=== PATIENT | male | born 1955 | race Caucasian/White ===

== ENCOUNTER → 2017-01-18 | Outpatient (CLI) | payer BC, OTHER ==
[~2017-01-18] MED LIST: ASPIR-LOW81 MG PO; CALCIUM 600 +1 EAC1 PO; CENTRUM SILVER1 EAC2 PO; COLACE100 MG PO; COUMADIN 2 MG TA2 M1 PO; DUONEB 2.5-0.5 M3 ML INH; GLUCOPHAGE1000 MG PO; HYDROCODONE-AP1 EAC6 PO; LEVAQUIN 500 M500 M4 PO; LIPITOR40 MG PO; LISINOPRIL5 MG PO; LOPRESSOR25 PO; METFORMIN HCL500 MG PO; MIRALAX17 GM PO; PACERONE 200 M200 M1 PO; PERCOCET PO; PULMICORT0.5 MG/22 INH; TYLENOL325 MG PO; XANAX 0.25 MG0.25 MG PO
--- NOTE | ~2017-01-18 | 2DMMODE ---
[facility] [place] [address] 2 D/M-MODE ECHOCARDIOGRAM Name: AKASH CORDON Room #: [facility]#: [id number] Admission: 01/18/17 Attend Phys: Shahbaz Maloney MD Discharge: Date of : 57 Date of Service: 01/18/17 1003 Report #: [id number] THIS REPORT FOR: //name// APPROVED REPORT Study performed: 01/18/2017 09:08:41 EXAM: Comprehensive 2D, Doppler, and color-flow Echocardiogram Patient Location: Out-Patient Blood Pressure: 122/75 mmHg HR: 56 bpm Rhythm: NSR Other Information Study Quality: Adequate Indications AVR 2016. Pericardail effusion/tamponade with centesis 2016. HTN 2D Dimensions RVDd: 38.02 mm LVEF(%): 57.36 (>50%) IVSd: 8.80 (7-11mm) LVOT Diam: 19.71 (18-24mm) LVDd: 41.12 mm PWd: 9.96 (7-11mm) LVDs: 28.88 (25-40mm) Aortic Root: 26.76 mm Hill's LVEF: 57.36 % Volumes Left Atrial Volume (Systole) Single Plane 4CH: 38.10 mL Single Plane 2CH: 46.18 mL LA ESV Index: 27.00 mL/m2 Aortic Valve AoV Peak Spencer.: 2.85 m/s AO Peak Gr.: 32.46 mmHg LVOT Max P.01 mmHg AO Mean Gr.: 18.55 mmHg AO V2 Mean: 2.04 m/s LVOT Max V: 1.32 m/s AO V2 VTI: 66.96 cm INDY Vmax: 1.42 cm2 Mitral Valve [facility] [place] [place] [address] 2 D/M-MODE ECHOCARDIOGRAM Name: AKASH CORDON Room #: [facility]#: [id number] Admission: 01/18/17 Attend Phys: Shahbaz Maloney MD Discharge: Date of : 57 Date of Service: 01/18/17 1003 Report #: [id number] E/A Ratio: 1.3 MV Decel. Time: 280.61 ms MV E Max Spencer.: 1.27 m/s MV A Spencer.: 0.99 m/s MV PHT: 81.38 ms IVRT: 59.98 ms Pulmonary Valve PV Peak Spencer.: 0.87 m/s PV Peak Gr.: 3.06 mmHg Pulmonary Vein P Vein S: 66.2 m/s P Vein A: 44.19 m/s P Vein D: 59.8 m/s P Vein A Dur.: 143.0 msec Tricuspid Valve TR Peak Spencer.: 2.40 m/s RAP Estimate: 5.00 mmHg TR Peak Gr.: 22.96 mmHg RVSP: 28.00 mmHg Left Ventricle The left ventricle is normal size. There is normal LV segmental wall motion. There is normal left ventricular wall thickness. Left ventricular systolic function is normal. LVEF is 55-60%. Grade II - pseudonormal filling dynamics. Right Ventricle The right ventricle is normal size. The right ventricular systolic function is normal. Atria The left atrium size is normal. The right atrium size is normal. Aortic Valve Bioprosthetic aortic valve is present. Size and manufacture unknown. Peak velocity of 2.9m/s with a peak gradient of 32mmHg and a mean of 19mmHg. Mild to moderate aortic regurgitation. Mitral Valve The mitral valve is normal in structure. Mild mitral regurgitation. No evidence of mitral valve stenosis. Tricuspid Valve The tricuspid valve is normal in structure. There is mild tricuspid regurgitation. The right atrial pressure is estimated at 5 mmHg. Estimated PAP is 28mmHg. [address] [address] 2 D/M-MODE ECHOCARDIOGRAM Name: AKASH CORDON Room #: [facility]#: [id number] Admission: 01/18/17 Attend Phys: Shahbaz Maloney MD Discharge: Date of : 57 Date of Service: 01/18/17 1003 Report #: [id number] Pulmonic Valve The pulmonary valve is normal in structure. Mild pulmonic regurgitation. Great Vessels The aortic root is normal in size. Ascending aorta is not well visualized. IVC is normal in size and collapses >50% with inspiration. <Conclusion> The left ventricle is normal size. Left ventricular systolic function is normal. Grade II - pseudonormal filling dynamics. The right ventricle is normal size. The left atrium size is normal. Bioprosthetic aortic valve is present. Size and manufacture unknown. Peak velocity of 2.9m/s with a peak gradient of 32mmHg and a mean of 19mmHg. Mild aortic regurgitation. Mild mitral regurgitation. There is mild tricuspid regurgitation. The right atrial pressure is estimated at 5 mmHg. Estimated PAP is 28mmHg. <ELECTRONICALLY SIGNED> By: Shahbaz Maloney MD 01/18/17 1003 1003 1003 Shahbaz Maloney MD /INF
== END ==
LOC: CV 08:12
DX: I31.3 Pericardial effusion (noninflammatory) (principal); Z95.2 Presence of prosthetic heart valve; I10 Essential (primary) hypertension

== ENCOUNTER → 2018-01-14 | Outpatient (CLI) | payer BC, OTHER ==
--- NOTE | ~2018-01-14 | 2DMMODE ---
[facility] [place] [address] [address] 2 D/M-MODE ECHOCARDIOGRAM Name: BRAVOAKASH Cannon Room #: REG [facility]#: [id number] Admission: 01/14/18 Attend Phys: Shahbaz Maloney MD Discharge: Date of : 57 Date of Service: 01/14/18 1059 Report #: [id number] THIS REPORT FOR: //name// APPROVED REPORT Study performed: 01/14/2018 10:10:04 EXAM: Comprehensive 2D, Doppler, and color-flow Echocardiogram Patient Location: Out-Patient Status: routine BSA: 1.70 HR: 53 bpm BP: 112/76 mmHg Rhythm: NSR Other Information Study Quality: Good Indications Aortic valve replacement 2016. History of tamponade with pericardiocentesis 2016. 2D Dimensions RVDd: 36.81 mm IVSd: 8.83 (7-11mm) LVOT Diam: 20.38 (18-24mm) LVDd: 42.35 mm PWd: 9.95 (7-11mm) Aortic Root: 26.82 mm Volumes Left Atrial Volume (Systole) Single Plane 4CH: 46.85 mL Single Plane 2CH: 66.78 mL LA ESV Index: 35.00 mL/m2 Aortic Valve AoV Peak Spencer.: 2.90 m/s AO Peak Gr.: 33.63 mmHg LVOT Max P.63 mmHg AO Mean Gr.: 16.69 mmHg AO V2 Mean: 1.88 m/s LVOT Max V: 1.08 m/s AO V2 VTI: 68.49 cm INDY Vmax: 1.21 cm2 Mitral Valve E/A Ratio: 1.[address] [facility] [address] [place] [address] 2 D/M-MODE ECHOCARDIOGRAM Name: BRAVOAKASH Davis Room #: [facility]#: [id number] Admission: 01/14/18 Attend Phys: Shahbaz Maloney MD Discharge: Date of : 57 Date of Service: 01/14/18 1059 Report #: [id number] MV Decel. Time: 262.10 ms MV E Max Spencer.: 1.31 m/s MV A Spencer.: 0.96 m/s MV PHT: 76.01 ms IVRT: 59.98 ms Pulmonary Valve PV Peak Spencer.: 0.89 m/s PV Peak Gr.: 3.15 mmHg Pulmonary Vein P Vein S: 0.65 m/s P Vein A: 0.44 m/s P Vein D: 0.57 m/s P Vein A Dur.: 133.8 msec P Vein S/D Ratio: 1.14 Tricuspid Valve TR Peak Spencer.: 2.30 m/s RAP Estimate: 5.00 mmHg TR Peak Gr.: 21.09 mmHg PA Pressure: 26.00 mmHg Left Ventricle The left ventricle is normal size. There is normal LV segmental wall motion. There is normal left ventricular wall thickness. The left ventricular systolic function is normal. LVEF is 55-60%. Right Ventricle The right ventricle is normal size. The right ventricular systolic function is normal. Atria Left atrium is mildly dilated. The right atrium size is normal. Aortic Valve Bioprosthetic aortic valve is present. 21mm [employer]entier Bradley. Peak velocity of 2.9m/s with a peak pressure gradient of 34mmHg and a mean of 17mmHg Mild aortic regurgitation. Mitral Valve The mitral valve is normal in structure. Mild mitral regurgitation. Tricuspid Valve The tricuspid valve is normal in structure. Mild tricuspid regurgitation. Estimated PAP is 25-30mmHg. Pulmonic Valve [address] [address] 2 D/M-MODE ECHOCARDIOGRAM Name: AKASH CORDON Davis Room #: REG [facility]#: [id number] Admission: 01/14/18 Attend Phys: Shahbaz Maloney MD Discharge: Date of : 57 Date of Service: 01/14/18 1059 Report #: [id number] The pulmonary valve is normal in structure. Mild pulmonic regurgitation. Great Vessels The aortic root is normal in size. Ascending aorta is not well visualized. IVC is normal in size and collapses >50% with inspiration. Pericardium There is no pericardial effusion. <Conclusion> The left ventricle is normal size. There is normal left ventricular wall thickness. The left ventricular systolic function is normal. The right ventricle is normal size. Left atrium is mildly dilated. Bioprosthetic aortic valve is present. 21mm [employer]ent[employer] Bradley. Peak velocity of 2.9m/s with a peak pressure gradient of 34mmHg and a mean of 17mmHg Mild aortic regurgitation. Mild mitral regurgitation. Mild tricuspid regurgitation. Estimated PAP is 25-30mmHg. <ELECTRONICALLY SIGNED> By: Shahbaz Maloney MD 01/14/18 1059 1059 1059 Shahbaz Maloney MD /INF
== END ==
LOC: CV 07:42
DX: I08.3 Combined rheumatic disorders of mitral, aortic and tricuspid valves (principal); Z95.4 Presence of other heart-valve replacement

== ENCOUNTER → 2018-02-05 | Outpatient (CLI) | payer BC, OTHER | LOC: CAT 09:02 | DX: R10.31 Right lower quadrant pain (principal); I25.10 Atherosclerotic heart disease of native coronary artery without angina pectoris ==

== ENCOUNTER 2018-09-30 10:11 | Emergency (ER) | payer BC, OTHER ==
[~2018-09-30] VITALS: Ht 165.1 cm; Wt 63.5 kg
[2018-09-30 11:01] LABS: ABSOLUTE NEUTROPHILS 2.3 thou/uL (1.4-8.2); BASOPHILS 0.7 % (0.0-2.0); EOSINOPHILS 4.8 % (0.0-3.0); HEMATOCRIT 40.9 % (42.0-52.0); HEMOGLOBIN 13.7 gm/dL (14.0-18.0); LYMPHOCYTES 28.3 % (24.0-44.0); MCH 30.3 pg (26.0-34.0); MCHC 33.6 g/dL (28.0-37.0); MCV 90.2 fL (80.0-100.0); MONOCYTES 8.2 % (1.0-8.0); PLATELET COUNT 161 thou/uL (150-400); RBC 4.53 mil/uL (4.50-6.00); RDW 13.3 % (10.5-14.5)
[2018-09-30 11:11] LABS: ANION GAP 6 mmol/L (7-16); BUN 22 mg/dL (7-18); CALCIUM 9.2 mg/dL (8.5-10.1); CHLORIDE 102 mmol/L (98-107); CO2 31 mmol/L (21-32); CREATININE 0.9 mg/dL (0.7-1.3); GLUCOSE 101 mg/dL (74-106); POTASSIUM 4.7 mmol/L (3.5-5.1); SODIUM 139 mmol/L (136-145)
[2018-09-30 11:20] LABS: LIPASE 154 U/L (73-393); SGOT 34 U/L (15-37); SGPT 41 U/L (30-65); TOTAL BILIRUBIN 1.1 mg/dL (<0.1-1.0); TOTAL PROTEIN 6.9 g/dL (6.4-8.2); TROPONIN-I <0.06 ng/mL (<0.06)
[2018-09-30 13:53] VITALS: BP 119/65
--- NOTE | 2018-10-01 08:29 | EKG ---
[place] [address] [place] [address] ELECTROCARDIOGRAM REPORT Name: AKASH CORDON [facility] [id number] Admission: 09/30/18 Attend Phys: Discharge: 09/30/18 Date of : 57 Report #: [id number] THIS REPORT FOR: //name// [facility] ED Test Date: 2018-09-30 Test Time: 10:17:28 Pat Name: AKASH CORDON Department: Room: Gender: Recreational Vehicle Repairer: GIOVANNI : 1955 Requested By: Sushma Mayo Order Number: [id number] MD: Venu Araiza Measurements Intervals [place] Rate: 54 P: 67 DE: 172 QRS: -59 QRSD: 102 T: 54 QT: 458 QTc: 435 Interpretive Statements Sinus rhythm Left anterior fascicular block Compared to ECG 11/22/2015 08:20:35 Left anterior fascicular block now present Electronically Signed On 10-01-2018 8:28:48 OPTICAL DESIGN ENGINEER by Venu Araiza [email or web address] <ELECTRONICALLY SIGNED> By: Venu Araiza MD, [facility] 10/01/18 0828 1017 16 Venu Araiza MD, FACC /EPI
--- NOTE | 2018-10-01 08:33 | EKG ---
[place] [address] [place] [address] ELECTROCARDIOGRAM REPORT Name: AKASH CORDON [id number] Admission: 09/30/18 Attend Phys: Discharge: 09/30/18 Date of : 57 Report #: [id number] THIS REPORT FOR: //name// [facility] ED Test Date: 2018-09-30 Test Time: 12:26:00 Pat Name: AKASH CORDON Department: Room: Gender: Manager Advertising: JOSE A : 1955 Requested By: Sushma Mayo Order Number: [id number] MD: Venu Araiza Measurements Intervals [place] Rate: 43 P: 14 NC: 169 QRS: -54 QRSD: 103 T: 53 QT: 480 QTc: 406 Interpretive Statements Sinus bradycardia Left anterior fascicular block Abnormal R-wave progression, late transition Compared to ECG 11/22/2015 08:20:35 No significant change was found Electronically Signed On 10-01-2018 8:32:48 PRODUCTION GENERALIST by Venu Araiza [email or web address] <ELECTRONICALLY SIGNED> By: Venu Araiza MD, [facility] 10/01/18 0832 1226 1226 Venu Araiza MD, [facility] /EPI
== END 2018-09-30 13:58 | disposition home or self-care (01) ==
LOC: ER 10:11
PROVIDERS: Nurse Practitioner Family
DX: R07.89 Other chest pain (principal); I10 Essential (primary) hypertension; E11.9 Type 2 diabetes mellitus without complications; E78.00 Pure hypercholesterolemia, unspecified

== ENCOUNTER → 2019-10-21 | Outpatient (CLI) | payer BC, OTHER | LOC: SJCVCIMAG 08:00 | DX: I08.8 Other rheumatic multiple valve diseases (principal); E78.00 Pure hypercholesterolemia, unspecified; R93.1 Abnormal findings on diagnostic imaging of heart and coronary circulation; I25.10 Atherosclerotic heart disease of native coronary artery without angina pectoris; Z95.2 Presence of prosthetic heart valve ==

== ENCOUNTER → 2021-06-10 | Outpatient (CLI) | payer OTHER | LOC: SJCVCIMAG 07:36 | PROVIDERS: ATTEND Internal Medicine Cardiovascular Disease | DX: I08.8 Other rheumatic multiple valve diseases (principal); I35.9 Nonrheumatic aortic valve disorder, unspecified; I10 Essential (primary) hypertension; E78.00 Pure hypercholesterolemia, unspecified; I25.10 Atherosclerotic heart disease of native coronary artery without angina pectoris; R00.1 Bradycardia, unspecified; E78.2 Mixed hyperlipidemia; E11.9 Type 2 diabetes mellitus without complications; Z95.2 Presence of prosthetic heart valve; Z79.82 Long term (current) use of aspirin; Z79.84 Long term (current) use of oral hypoglycemic drugs; Z79.899 Other long term (current) drug therapy; Z72.89 Other problems related to lifestyle ==